=== PATIENT | male | born 1990 | race Caucasian/White ===

== ENCOUNTER 2018-09-11 09:20 | Emergency (ER) | payer BC ==
[~2018-09-11] VITALS: Ht 170.2 cm; Wt 90.0 kg
[~2018-09-11 09:20] MED LIST: AMOXICILLIN500 MG PO; AMOXIL500 MG OR; AZITHROMYCIN250 MG PO; CIPRODEX1 ML AD; CLARITHROMYC500 M2 OR; NO; NO MEDS
[2018-09-11 10:23] VITALS: BP 146/94
[2018-09-11] MEDS ORDERED: AMPHETAMINE10 M1 PO (10:24)
== END 2018-09-11 11:40 | disposition home or self-care (01) | DRG 563 ==
LOC: ED 09:20
PROC: 2W3QX1Z Immobilization of Right Lower Leg using Splint (ICD-10-PCS; principal; 2018-09-11)
DX: S82.831A Other fracture of upper and lower end of right fibula, initial encounter for closed fracture (principal); F90.9 Attention-deficit hyperactivity disorder, unspecified type; F17.210 Nicotine dependence, cigarettes, uncomplicated; W18.30XA Fall on same level, unspecified, initial encounter; Y93.41 Activity, dancing; Y92.009 Unspecified place in unspecified non-institutional (private) residence as the place of occurrence of the external cause

== ENCOUNTER → 2018-11-01 | Outpatient (REF) | payer BC ==
[~2018-11-01] MED LIST changes: +AMPHETAMINE10 M1 PO
== END | disposition home or self-care (01) | DRG 561 ==
LOC: DI 15:46
PROVIDERS: ATTEND Podiatrist Foot & Ankle Surgery
DX: S82.831D Other fracture of upper and lower end of right fibula, subsequent encounter for closed fracture with routine healing (principal)

== ENCOUNTER 2019-06-13 23:06 | Emergency (ER) | payer BC ==
[~2019-06-13] VITALS: Ht 170.2 cm; Wt 81.0 kg
[2019-06-14] MEDS ORDERED: AMOXICILLIN500 MG PO (00:35)
[2019-06-14 00:51] VITALS: BP 126/79
== END 2019-06-14 00:51 | disposition home or self-care (01) | DRG 159 ==
LOC: ED 23:06
PROC: 0CQ1XZZ Repair Lower Lip, External Approach (ICD-10-PCS; principal; 2019-06-13)
DX: S01.511A Laceration without foreign body of lip, initial encounter (principal); F17.200 Nicotine dependence, unspecified, uncomplicated; W01.0XXA Fall on same level from slipping, tripping and stumbling without subsequent striking against object, initial encounter; Y92.009 Unspecified place in unspecified non-institutional (private) residence as the place of occurrence of the external cause

== ENCOUNTER 2019-07-13 18:49 | Emergency (ER) | payer BC ==
[~2019-07-13] VITALS: Ht 170.2 cm; Wt 82.0 kg
[2019-07-13] MEDS ORDERED: [UNRECOGNIZED DRUG - OTHER] (19:25)
[2019-07-13] MEDS ORDERED: MEDDOSEPAK PO (20:49)
[2019-07-13] MEDS ORDERED: TESSALON PERLE100 MG PO (20:49)
[2019-07-13] MEDS ORDERED: AMOX/K CLAV875 M1 PO (20:49)
[2019-07-13 21:32] VITALS: BP 146/70
== END 2019-07-13 21:32 | disposition home or self-care (01) | DRG 153 ==
LOC: ED 18:49
DX: J32.9 Chronic sinusitis, unspecified (principal); J06.9 Acute upper respiratory infection, unspecified